=== PATIENT | male | born 1965 | race Caucasian/White ===

== ENCOUNTER 2019-01-05 08:03 | Outpatient (RCR) | payer SELFPAY ==
[2019-01-05 09:09] LABS: INR 2.4; Prothrombin Time 25.8 Seconds (11.1-14.7)
== END 2019-04-05 23:59 | disposition home or self-care (01) ==
LOC: ANHLAB 08:03
PROVIDERS: Visit Provider Nurse Practitioner Adult Health
DX: Z51.81 Encounter for therapeutic drug level monitoring (principal); I48.0 Paroxysmal atrial fibrillation; Z79.01 Long term (current) use of anticoagulants
CPT/HCPCS: 36415; 85610